=== PATIENT | female | born 1990 | race Caucasian/White ===

== ENCOUNTER 2024-03-26 16:44 | Observation (INO) ==
--- NOTE | 2024-03-26 17:29 | Emergency Department Note ---
Impression & Plan Acute UTI (urinary tract infection), Chest pain, Sepsis, Shortness of breath, Hypomagnesemia, Leukocytosis ED Provider Note HISTORY OF PRESENT ILLNESS: Patient is a 33-year-old female presenting with chest pain and shortness of breath. Patient reports that she has been having progressively worsening chest pressure and increasing shortness of breath over the last 4 days. She reports she has been tachycardic with a heart rate in the 130s to 140s for the last 3 days. She has been keeping an eye on this with her Apple Watch. She states that today she feels very lightheaded with her elevated heart rate. She denies any dysuria or hematuria. Denies any vaginal bleeding or discharge. She is 33 weeks . She states that she has been feeling movements. She reports that she spiked a fever today of 99-1 01. Denies any recent antipyretics prior to arrival. She has had a dry cough that has been productive of some blood-tinged sputum today. She has a history of hypertension. ROS: as above PHYSICAL EXAM: Constitutional: Patient appears in no acute distress. HENT: Head: Normocephalic and atraumatic. Eyes: EOMI, PERRL Mouth/Throat: Mucous membranes moist. Neck: Trachea midline. Neck supple. Cardiovascular: Tachycardic with regular rhythm. No murmurs, rubs or gallops. Intact distal pulses. Pulmonary/Chest: No respiratory distress. Breath sounds clear and equal bilaterally. No wheezes or rales. Abdominal: Abdomen soft, no tenderness, rebound or guarding. Gravid uterus. Musculoskeletal: No edema, tenderness or deformity noted. Skin: Warm and dry. No rash, erythema, pallor or cyanosis Psychiatric: Appropriate mood and affect for situation. Neurological: Alert and keenly responsive. CN II-XII grossly intact, moving all extremities equally and fully. MDM: - Vitals signs showed tachycardia - History obtained via patient. History as above. - Chronic conditions affecting care: HTN - Differential diagnoses include, but are not limited to: Congestive heart failure; acute coronary syndrome; COPD/asthma exacerbation; pulmonary edema; pulmonary embolism; pneumonia; pneumothorax; viral syndrome - Order placed for continuous cardiac monitoring. At this time, monitor showed rate of 121 bpm with normal sinus rhythm, per my interpretation. - External medical records reviewed. - EKG interpreted by myself showed normal sinus rhythm. Rate tachycardic at 128 bpm. QT 292. No acute ischemic changes. - Laboratory workup interpreted by myself showed leukocytosis (WBC 15.37); normal PT/INR; normal lactate; slight hyponatremia (Na 135); hypomagnesemia (Mg 1.5); normal lipase; normal troponin - CXR negative for pneumonia, per my interpretation - Viral respiratory panel negative - Per ACOG Guidelines: "Women in the second and third trimesters are candidates for low-dose CT if ultrasonography is not diagnostic. An [place] [employer] (ACOG) committee on obstetric practice endorses the utilization of low-dose CT when clinically indicated and notes that an exposure of less than 5 rads, a threshold well above the average for a low-dose CT, is not associated with the development of anomalies or loss." Flavio COE, Mary DE LEON, Joselito J et al: Low-dose computed tomography for the evaluation of flank pain in the population. Journal of Endourology/Endourological Society 2007; 21: 1255. [place] [employer]: [place] [employer]: guidelines for diagnostic imaging during . ACOG Committee Opinion No 299. Obstet Gynecol 2004; 104: 647 - Discussed the above risk for anomalies or loss with the patient before obtaining a CT scan. Discussed the risks of missing a diagnosis of pulmonary embolism, including heart failure and , with the patient. She consented to obtain a CT PE scan. - CT PE negative for PE. - Patient given 1.5L NS in ER with little improvement in her heart rate. Given 2g IV rocephin for UTI. - Given patient's leukocytosis, elevated RR, tachycardia and UTI, she meets sepsis criteria. She remains tachycardic in the ER with heart rate in the 110- 120 bpm range. - Patient given 1g IV magnesium for electrolyte replacement. - Discussion was had with case management specialist about patient's case and need for admission - Hospitalist, Dr. Hills, consulted for admission - Patient admitted to [facility] for further evaluation and management. ASSESSMENT AND PLAN: Diagnosis: acute UTI; sepsis; hypomagnesemia; chest pain; shortness of breath; leukocytosis Plan: admit Past Med/Surg History Problem List (Updated 03/26/24 @ 20:38 by Sophia Michael MD) Leukocytosis (Acute) Hypomagnesemia (Acute) Shortness of breath (Acute) Sepsis (Acute) Chest pain (Acute) Acute UTI (urinary tract infection) (Acute) Acute knee pain (Acute) Ankle sprain (Acute) Elbow injury (Acute) Fall (Acute) Cramping affecting , antepartum with 29 completed weeks gestation Medical History HTN (hypertension) with goal to be determined Endometriosis Fibroid Surgical History H/O laparoscopy x2 with LSO History of cholecystectomy History of section 2015 Social History Smoking Status: Never smoker Hx Alcohol Use: No Hx Substance Use: No Preferred Language: Marshallese Communication Ability: Effective Terminal Worker Required: No Beliefs That Will Affect Care: None marital status: Single Current Living Situation: Family and Significant Other Current Living Situation Comment: significant other and 2 children Feels Safe at Home: Yes Assistive Devices: None Allergies Allergies Allergy/AdvReac Type Severity Reaction Status Date / Time IV benadryl AdvReac Difficulty Uncoded 03/26/24 19:47 Breathing IV Zofran AdvReac Hives Uncoded 03/26/24 19:47 Home Meds Home Medications Medication Instructions Recorded Confirmed fluoxetine 10 mg capsule (Prozac) 10 mg PO DAILY 02/26/24 03/26/24 labetalol 100 mg tablet 100 mg PO BID 02/26/24 03/26/24 vits no.130-ferrous fum 1 tab PO BID 02/26/24 03/26/24 27 mg iron-folic acid 800 mcg tablet ( Vitamin) Results & Data (ED) Vital Signs Vital Signs - 24 hr 03/26/24 16:57 03/26/24 16:57 03/26/24 17:03 Temperature 37.3 C Temperature Source Oral Pulse Rate 128 H 129 H Pulse Rate from SpO2 Sensor 129 H Respiratory Rate 12 23 Blood Pressure 134/88 144/99 H Blood Pressure Mean 103 114 Pulse Oximetry 98 97 Oxygen Delivery Method Room Air Room Air Sepsis Recent Fever Within 48 Hours No Sepsis New/Unexplained Change in Mental Status No Sepsis Action Taken by Nursing No Action Required 03/26/24 17:07 03/26/24 17:12 03/26/24 17:48 Temperature Temperature Source Pulse Rate 129 H 121 H Pulse Rate from SpO2 Sensor 122 H Respiratory Rate 19 Blood Pressure Blood Pressure Mean Pulse Oximetry 94 96 Oxygen Delivery Method Room Air Sepsis Recent Fever Within 48 Hours Sepsis New/Unexplained Change in Mental Status Sepsis Action Taken by Nursing 03/26/24 18:09 03/26/24 19:03 03/26/24 19:33 Temperature Temperature Source Pulse Rate 118 H 111 H 107 H Pulse Rate from SpO2 Sensor 118 H 111 H 106 H Respiratory Rate 21 21 23 Blood Pressure 133/94 121/85 Blood Pressure Mean 107 97 Pulse Oximetry 97 97 97 Oxygen Delivery Method Sepsis Recent Fever Within 48 Hours Sepsis New/Unexplained Change in Mental Status Sepsis Action Taken by Nursing 03/26/24 19:43 03/26/24 20:00 Temperature 37.4 C Temperature Source Oral Pulse Rate 111 H Pulse Rate from SpO2 Sensor 112 H Respiratory Rate 19 Blood Pressure 126/81 Blood Pressure Mean 96 Pulse Oximetry 98 Oxygen Delivery Method Sepsis Recent Fever Within 48 Hours Sepsis New/Unexplained Change in Mental Status Sepsis Action Taken by Nursing Laboratory Data 03/26/24 17:40 03/26/24 17:40 Lab Results 03/26/24 03/26/24 Range/Units 17:40 19:36 WBC 15.37 H (4.8-10.8) K/ul RBC 3.52 L (4.20-5.40) M/uL Hgb 10.8 L (12.0-16.0) g/dl Hct 30.9 L (37.0-47.0) % MCV 87.8 (80.0-100.0) fL MCH 30.7 (25.0-34.0) pg MCHC 35.0 (32.0-36.0) g/dL RDW Std Deviation 41.1 (36.4-46.3) fL RDW Coeff of Balwinder 12.8 (11.5-14.5) % Plt Count 222 (130-400) K/uL MPV 9.2 L (9.4-12.4) fL Immature Gran % (Auto) 1.4 % Neut % (Auto) 79.4 % Lymph % (Auto) 9.0 % [place] % (Auto) 9.4 % Eos % (Auto) 0.5 % Baso % (Auto) 0.3 % Neut # (Auto) 12.23 H (1.40-6.50) K/uL Lymph # (Auto) 1.38 (1.20-3.40) K/uL [place] # (Auto) 1.44 H (0.11-0.59) K/uL Eos # (Auto) 0.07 (0.00-0.50) K/uL Baso # (Auto) 0.04 (0.00-0.20) K/uL Immature Gran # (Auto) 0.21 H (0.01-0.20) K/uL PT 10.6 (9.0-12.0) Seconds INR 1.0 (0.9-1.1) Sodium 135 L (136-145) mmol/L Potassium 3.6 (3.5-5.1) mmol/L Chloride 105 (98-107) mmol/L Carbon Dioxide 22 (21-32) mmol/L Anion Gap 8 (3-11) BUN 5 L (6-23) mg/dl Creatinine 0.67 (0.6-1.2) mg/dl Est Cr Clr Drug Dosing 117.3 ml/min eGFR 118.28 BUN/Creatinine Ratio 7.5 L (10-20) Glucose 118 H (70-99(Fasting)) mg/dl Lactate 0.8 (0.4-2.0) mmol/L Calcium 8.9 (8.6-10.3) mg/dl Magnesium 1.6 L (1.7-2.4) mg/dl Total Bilirubin 0.5 (0.2-1.0) mg/dl AST 20 (13-39) U/L ALT 13 (7-52) U/L Alkaline Phosphatase 121 H (34-104) U/L Troponin I High Sens 5.7 (0-14) pg/ml Total Protein 6.1 (6.0-8.3) gm/dl Albumin 3.2 L (3.4-5.0) gm/dl Globulin 2.9 (2.5-4.0) gm/dl Albumin/Globulin Ratio 1.1 (0.9-2) Lipase 11 (11-82) U/L Procalcitonin 0.11 (0-0.5) ng/ml Urine Color Yellow Urine Appearance Cloudy A (Clear) Urine pH 7.0 (4.5-7.5) Ur Specific [place] 1.009 (1.000-1.030) Urine Protein 1+ H (Negative) Urine Glucose (UA) Negative (Negative) Urine Ketones Trace H (Negative) Urine Blood Negative (Negative) Urine Nitrite Negative (Negative) Urine Bilirubin Negative (Negative) Urine Urobilinogen Negative (Negative) Ur Leukocyte Esterase 3+ H (Negative) Urine WBC (Auto) >50 H (0-5) /hpf Urine RBC (Auto) 0-2 (0-2) /hpf U Hyaline Cast (Auto) 0-2 (0-2) /lpf U Epithel Cells (Auto) 11-20 H (0-2) /hpf Urine Bacteria (Auto) 3+ H (None Seen) Adenovirus (PCR) Not Detected (NotDetected) B. pertussis DNA (PCR) Not Detected (NotDetected) B.parapertussis DNA PCR Not Detected (NotDetected) C. pneumoniae DNA (PCR) Not Detected (NotDetected) Coronavirus OC43 (PCR) Not Detected (NotDetected) Coronavirus HKU1 (PCR) Not Detected (NotDetected) Coronavirus 229E (PCR) Not Detected (NotDetected) SARS-CoV-2 (PCR) Not Detected (NotDetected) Coronavirus NL63 (PCR) Not Detected (NotDetected) Human Metapneumovir PCR Not Detected (NotDetected) Influenza Type A (PCR) Not Detected (NotDetected) Influenza Type B (PCR) Not Detected (NotDetected) M. pneumoniae (PCR) Not Detected (NotDetected) Parainfluenza 1 (PCR) Not Detected (NotDetected) Parainfluenza 2 (PCR) Not Detected (NotDetected) Parainfluenza 3 (PCR) Not Detected (NotDetected) Parainfluenza 4 (PCR) Not Detected (NotDetected) RSV (PCR) Not Detected (NotDetected) Entero/Rhino (PCR) Not Detected (NotDetected) Administered Medications Discontinued Medications Sodium Chloride (Nss) 500 mls @ 999 mls/hr IV .Q31M ONE Stop: 03/26/24 17:45 Last Infusion: 03/26/24 18:43 Dose: Infused Documented By: Admin: 03/26/24 17:56 Dose: 999 mls/hr Documented By: PANKAJ Ceftriaxone Sodium (Rocephin) 2,000 mg in 50 mls @ 100 mls/hr IV NOW STA Stop: 03/26/24 18:54 Last Infusion: 03/26/24 19:20 Dose: Infused Documented By: Admin: 03/26/24 18:47 Dose: 100 mls/hr Documented By: MOSES Sodium Chloride (Nss) 1,000 mls @ 999 mls/hr IV .Q1H1M ONE Stop: 03/26/24 20:09 Last Admin: 03/26/24 19:41 Dose: 999 mls/hr Documented By: MOSES Ioversol (Optiray 320 125ml) 92 ml IV ONCE ONE Stop: 03/26/24 18:35 Last Admin: 03/26/24 18:35 Dose: 92 ml Documented By: EDK Imaging Data Radiologist's Impression: Chest X-Ray 03/26/24 17:07 EXAM: Radiograph of the Chest 1 View INDICATION: Shortness of breath. . TECHNIQUE: Frontal view of the chest. The patient was shielded. COMPARISON: No relevant prior studies available. FINDINGS: Lungs and pleural spaces: No consolidation or pulmonary edema. No pleural effusion or pneumothorax. Heart: Shape and configuration within normal limits allowing for technique. Mediastinum: Normal contour. Bones/joints: No fracture, erosion or dislocation. Soft tissues: No abnormality noted. No radiopaque foreign body noted. Upper abdomen: No abnormality noted. IMPRESSION: No abnormality noted. ACT 112: Negative or not required by law. Electronically signed by Elmira Graham 03-26-2024 6:15 PM Chest CTA 03/26/24 17:26 EXAM: CT angio chest PE protocol CLINICAL HISTORY: TACHYCARDIA, SOB, COUGH CHEST PAIN 33 WEEKS ABDOMEN/PELVIS FULLY SHIELDED OPTIRAY 320 92ML EK INPATIENT TECHNIQUE: Contiguous 3.[address] angiographic images of the chest were acquired with the administration of intravenous contrast. Coronal and sagittal reconstructions were obtained. OPTIRAY 320 92ML was administered for post-contrast images. One of these 3D techniques was utilized: Maximum Intensity Pixel (MIP), 3D Reconstructed Images, Volume Rendered Images, Surface Shaded Rendering. One of the following dose reduction techniques were utilized for this exam: Automated exposure control, adjustment of the mA and/or kV according to patient size, and use of iterative reconstruction. CTDI: 20.3 mGy DLP: 283 mGy/Cm COMPARISON: None. FINDINGS: Aorta: The thoracic aorta is normal in caliber. No evidence of aneurysm, dissection, or significant atherosclerotic changes. Aortic arch and descending thoracic aorta are unremarkable. Pulmonary Arteries: Pulmonary arteries are normal in size and opacification. No evidence of pulmonary embolism. No stenosis or filling defects. Superior Vena Cava (SVC) and Inferior Vena Cava (IVC): Normal opacification and caliber. No evidence of thrombus or obstruction. Coronary Arteries: Coronary arteries are well-opacified. No significant stenosis or atherosclerotic changes. Mediastinum: No mediastinal mass or lymphadenopathy. Normal appearance of the thymus. Heart: Normal size and morphology of the heart. No pericardial effusion. Lungs: Lungs are clear with no evidence of consolidation, nodules, or masses. No pleural effusion or thickening. Bones: No fractures or lytic/sclerotic lesions of the visualized bony structures. Normal alignment and bone density. Soft Tissues: Normal appearance of the visualized soft tissues. No abnormal masses or fluid collections. significant hepatic aerobilia, for history, and further U/S correlation IMPRESSION: 1. No acute pulmonary embolism on current study. 2. Significant hepatic aerobilia, for history, and further U/S correlation. [facility]'s ER was called at at 6:15 PM STOCK PITCHER, 03/26/[address] Michael was informed about the presence of important medical findings. Electronically signed by Prakash Silver 03-26-2024 7:20 PM Discharge Plan Visit Data Chief Complaint: Cardiac Assessment Stated Complaint: CHEST PAIN ED Provider: Sophia Michael Discharge Problem: Acute UTI (urinary tract infection), Chest pain, Sepsis, Shortness of breath, Hypomagnesemia, Leukocytosis Forms Stand Alone Forms: My [facility] Prescriptions Prescriptions: No Action fluoxetine [Prozac] 10 mg Capsule 10 mg PO DAILY labetalol 100 mg Tablet 100 mg PO BID Vitamin 27 mg iron- 800 mcg Tablet 1 tab PO BID Referrals Referrals: PCP,NO [Primary Care Provider] -
[2024-03-26] MEDS: SODIUM CHLORIDE 0.9% 500 ML IV ONE (17:56)
[2024-03-26 18:04] LABS: Basophils # (auto) 0.04 K/uL (0.00-0.20); Basophils % (auto) 0.3 %; Eosinophils # (auto) 0.07 K/uL (0.00-0.50); Eosinophils % (auto) 0.5 %; Hematocrit (blood only) 30.9 % (37.0-47.0); Hemoglobin 10.8 g/dl (12.0-16.0); Immature Granulocytes # (auto) 0.21 K/uL (0.01-0.20); Immature Granulocytes % (auto) 1.4 %; Lymphocytes # (auto) 1.38 K/uL (1.20-3.40); Mean Corpuscular Hemoglobin 30.7 pg (25.0-34.0); Mean Corpuscular Volume 87.8 fL (80.0-100.0); Mean Platelet Volume 9.2 fL (9.4-12.4); Monocytes # (auto) 1.44 K/uL (0.11-0.59); Monocytes % (auto) 9.4 %; Neutrophils # (auto) 12.23 K/uL (1.40-6.50); Neutrophils % (auto) 79.4 %; Platelet Count 222 K/uL (130-400); RDW Coefficient of Variation 12.8 % (11.5-14.5); RDW Standard Deviation 41.1 fL (36.4-46.3); Red Blood Count 3.52 M/uL (4.20-5.40); White Blood Count 15.37 K/ul (4.8-10.8)
[2024-03-26 18:08] LABS: Appearance Urine Cloudy (Clear); Bacteria Urine Automated 3+ (None Seen); Bilirubin Urine Negative (Negative); Blood Urine Negative (Negative); Cast Urine Automated 0-2 /lpf (0-2); Color Urine Yellow; Glucose Urine UA Negative (Negative); Ketones Urine Trace (Negative); Leukocyte Esterase Urine 3+ (Negative); Nitrite Urine Negative (Negative); Protein Urine 1+ (Negative); RBC Urine Automated 0-2 /hpf (0-2); Specific Gravity Urine 1.009 (1.000-1.030); Urobilinogen Urine Negative (Negative); WBC Urine Automated >50 /hpf (0-5)
[2024-03-26 18:15] LABS: Albumin Globulin Ratio 1.1 (0.9-2); Albumin Level 3.2 gm/dl (3.4-5.0); BUN Creatinine Ratio 7.5 (10-20); Bilirubin,Total 0.5 mg/dl (0.2-1.0); Calcium 8.9 mg/dl (8.6-10.3); Creatinine Clr Calc Pharmacy 117.3 ml/min; Globulin 2.9 gm/dl (2.5-4.0); Magnesium 1.6 mg/dl (1.7-2.4); Potassium 3.6 mmol/L (3.5-5.1); Total Protein 6.1 gm/dl (6.0-8.3)
--- NOTE | 2024-03-26 18:15 | XRay Report ---
EXAM: Radiograph of the Chest 1 View INDICATION: Shortness of breath. . TECHNIQUE: Frontal view of the chest. The patient was shielded. COMPARISON: No relevant prior studies available. FINDINGS: Lungs and pleural spaces: No consolidation or pulmonary edema. No pleural effusion or pneumothorax. Heart: Shape and configuration within normal limits allowing for technique. Mediastinum: Normal contour. Bones/joints: No fracture, erosion or dislocation. Soft tissues: No abnormality noted. No radiopaque foreign body noted. Upper abdomen: No abnormality noted. IMPRESSION: No abnormality noted. ACT 112: Negative or not required by law. Electronically signed by Elmira Graham 03-26-2024 6:15 PM
[2024-03-26 18:21] LABS: Troponin I High Sensitivity 5.7 pg/ml (0-14)
[2024-03-26 18:24] LABS: Prothrombin Time 10.6 Seconds (9.0-12.0)
[2024-03-26] MEDS: OPTIRAY 320 125ml IV ONE (18:35)
[2024-03-26] MEDS: cefTRIAXone SODIUM 2,000 MG/50 ML BAG IV STA (18:47)
[2024-03-26 18:58] LABS: Adenovirus PCR Not Detected (NotDetected); Bordetella parapertussis PCR Not Detected (NotDetected); Bordetella pertussis PCR Not Detected (NotDetected); Chlamydia pneumoniae PCR Not Detected (NotDetected); Coronavirus 229E PCR Not Detected (NotDetected); Coronavirus CoV-2 (COVID19)PCR Not Detected (NotDetected); Coronavirus HKU1 PCR Not Detected (NotDetected); Coronavirus NL63 PCR Not Detected (NotDetected); Coronavirus OC43PCR Not Detected (NotDetected); Human Metapneumovirus PCR Not Detected (NotDetected); Influenza A PCR Not Detected (NotDetected); Influenza B PCR Not Detected (NotDetected); Mycoplasma pneumoniae PCR Not Detected (NotDetected); Parainfluenza Virus 1 PCR Not Detected (NotDetected); Parainfluenza Virus 2 PCR Not Detected (NotDetected); Parainfluenza Virus 3 PCR Not Detected (NotDetected); Parainfluenza Virus 4 PCR Not Detected (NotDetected); Respiratory Syncytial VirusPCR Not Detected (NotDetected); Rhinovirus/Enterovirus PCR Not Detected (NotDetected)
--- NOTE | 2024-03-26 19:22 | CT Scan Report ---
EXAM: CT angio chest PE protocol CLINICAL HISTORY: TACHYCARDIA, SOB, COUGH CHEST PAIN 33 WEEKS ABDOMEN/PELVIS FULLY SHIELDED OPTIRAY 320 92ML EK INPATIENT TECHNIQUE: Contiguous 3.[address] angiographic images of the chest were acquired with the administration of intravenous contrast. Coronal and sagittal reconstructions were obtained. OPTIRAY 320 92ML was administered for post-contrast images. One of these 3D techniques was utilized: Maximum Intensity Pixel (MIP), 3D Reconstructed Images, Volume Rendered Images, Surface Shaded Rendering. One of the following dose reduction techniques were utilized for this exam: Automated exposure control, adjustment of the mA and/or kV according to patient size, and use of iterative reconstruction. CTDI: 20.3 mGy DLP: 283 mGy/Cm COMPARISON: None. FINDINGS: Aorta: The thoracic aorta is normal in caliber. No evidence of aneurysm, dissection, or significant atherosclerotic changes. Aortic arch and descending thoracic aorta are unremarkable. Pulmonary Arteries: Pulmonary arteries are normal in size and opacification. No evidence of pulmonary embolism. No stenosis or filling defects. Superior Vena Cava (SVC) and Inferior Vena Cava (IVC): Normal opacification and caliber. No evidence of thrombus or obstruction. Coronary Arteries: Coronary arteries are well-opacified. No significant stenosis or atherosclerotic changes. Mediastinum: No mediastinal mass or lymphadenopathy. Normal appearance of the thymus. Heart: Normal size and morphology of the heart. No pericardial effusion. Lungs: Lungs are clear with no evidence of consolidation, nodules, or masses. No pleural effusion or thickening. Bones: No fractures or lytic/sclerotic lesions of the visualized bony structures. Normal alignment and bone density. Soft Tissues: Normal appearance of the visualized soft tissues. No abnormal masses or fluid collections. significant hepatic aerobilia, for history, and further U/S correlation IMPRESSION: 1. No acute pulmonary embolism on current study. 2. Significant hepatic aerobilia, for history, and further U/S correlation. [facility]'s ER was called at at 6:15 PM TAN ROOM SUPERVISOR, 03/26/[address] Michael was informed about the presence of important medical findings. Electronically signed by Prakash Silver 03-26-2024 7:20 PM
[2024-03-26] MEDS: SODIUM CHLORIDE 0.9% 1,000 ML IV ONE (19:41)
--- NOTE | 2024-03-26 21:01 | History & Physical Report ---
Date of Service March 26, 2024 Assessment & Plan (1) Sepsis: (2) Shortness of breath: (3) Acute UTI (urinary tract infection): (4) Third trimester : Plan Nina is a 33F EDC of 05/12/24 for EGA of 33 2/7 weeks who presented to the hospital for increasing heart rate and dyspnea and is being admitted for UTI w/ sepsis. (1) Sepsis: - Patient SIRS + w/ presumed urinary source Leukocytosis w/ left shift, Lactate wnl, Procal wnl - S/p 1.5 L NSS in ED, Magnesium repleted - Additional 1L IVF ordered on admission - Continue Ceftriaxone 2g IV Q24h (2) Shortness of breath: - CXR and CTA negative - Biofire negative - Hemodynamically table on room air - Likely a/w sepsis/UTI in setting of third trimester (3) Acute UTI (urinary tract infection): - Asymptomatic bacteriuria in - Now w/ leukocytosis and tachycardia - Abnormal urinalysis on admission, cultures pending - Continue Ceftriaxone IV (4) Third trimester : - Patient following with Codi Almeida, complicated OB PMH - Baby remains active, no vaginal bleeding/discharge/fluid loss; increased contractions - [facility] Consulted Cervix noted to be closed on exam NST on admission wnl - NST ongoing, ordered qshift - Continue vitamin Continue home medications: Labetalol 100 mg PO BID and Prozac Code: Full IVF: Ongoing Diet: NPO Dispo: PCU/tele History of Present Illness Chief Complaint: Elevated HR Primary Care Provider: NO PCP Nina is a 33F EDC of 05/12/24 for EGA of 33 2/7 weeks who presented to the hospital for increasing heart rate and dyspnea. ED: 1.5L NSS, Ceftriaxone Nina presented to the ER due to having an increasing heart rate over the last 4 days. She noted that tonight she became extremely short of breath w/ pain on inspiration so she called EMS. Over the last few days, she has experienced low grade temperature elevations to 99 degrees, but tonight her temperature keke to 100.9 (documented in ambulance as well). Patient notes that she received Aspirin en route w/ EMS. She states that she has been experiencing a mild non-productive cough w/ nasal congestion over the last 3-4 days. No known sick contacts, but does have two children at home who are in school. She notes intermittent nausea associated w/ this for which she takes PO Zofran. She denies any dysuria, frequency, or urgency (but states that baby has been sitting on her bladder for weeks). She denies diarrhea, and notes constipation with this . Patient denies any abdominal pain or vaginal bleeding, spotting, or discharge. Patient notes that baby has been active as usual. Patient notes that she has had a significant amount of [place] singh contractions during this , which is different from her previous. She notes that she continues to have contractions tonight, that are more painful than baseline. Patient follows / [facility] for OB care. Patient has had two prior c/sections. First for cardiac arrest during delivery (per patient) and second for severe pre-eclampsia. Patient has a history of post- hemorrhage (per patient). Patient is known to have chronic hypertension of Labetalol 100 mg BID. She also takes Prozac. Allergies Allergy/AdvReac Type Severity Reaction Status Date / Time diphenhydramine AdvReac Difficulty Verified 03/27/24 00:46 [From Benadryl] Breathing ondansetron [From Zofran] AdvReac Hives Verified 03/27/24 00:47 Home Medications Medication Instructions Recorded Confirmed Type fluoxetine 10 mg capsule (Prozac) 10 mg PO DAILY 02/26/24 03/26/24 History labetalol 100 mg tablet 100 mg PO BID 02/26/24 03/26/24 History vits no.130-ferrous fum 1 tab PO BID 02/26/24 03/26/24 History 27 mg iron-folic acid 800 mcg tablet ( Vitamin) cefdinir 300 mg capsule 300 mg PO BID 8 days #16 caps 03/27/24 Rx Past Med/Surg History Problem List (Updated 03/27/24 @ 12:02 by Celio Pastrana DO) Abnormal contrast radiography of biliary tree Third trimester Leukocytosis (Acute) Hypomagnesemia (Acute) Shortness of breath (Acute) Sepsis (Acute) Chest pain (Acute) Acute UTI (urinary tract infection) (Acute) Acute knee pain (Acute) Ankle sprain (Acute) Elbow injury (Acute) Fall (Acute) Cramping affecting , antepartum with 29 completed weeks gestation Medical History HTN (hypertension) with goal to be determined Endometriosis Fibroid Surgical History H/O laparoscopy x2 with LSO History of cholecystectomy History of section 2008, 2015 Social History Smoking Status: Never smoker Hx Alcohol Use: No Hx Substance Use: No Preferred Language: Korean Communication Ability: Effective 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 Beliefs That Will Affect Care: None marital status: Single Current Living Situation: Spouse and Family Current Living Situation Comment: significant other and 2 children Feels Safe at Home: Yes Assistive Devices: None Physical Exam Physical Exam: Gen: NAD, alert, tearful, anxious HEENT: Supple, no LAD, no thyromegaly, no JVD Resp:Non-labored, no wheezing/rhonchi/rales, CTAB CV:tachycardic, regular rhythm, normal S1/S2, no M/R/G Abd: Gravid, no TTP, normoactive bowels, no masses - Gravid uterus, active fetus, FHT in 15 0s Extr: 2+ dp bilaterally, no edema Skin: No rashes lesions or erythema Results & Data Results & Data Vital Signs (Past 12 Hours) Vital Signs Temp Pulse Resp BP Pulse Ox O2 Del Method 03/26/24 20:00 111 H 19 126/81 98 03/26/24 19:43 37.4 C 03/26/24 19:33 107 H 23 97 03/26/24 19:03 111 H 21 121/85 97 03/26/24 18:09 118 H 21 133/94 97 03/26/24 17:48 121 H 19 96 03/26/24 17:12 129 H 03/26/24 17:07 94 Room Air 03/26/24 17:03 129 H 23 144/99 H 97 03/26/24 16:57 Room Air 03/26/24 16:57 37.3 C 128 H 12 134/88 98 Room Air Supervising Physician Co-Signing Physician Notes Attending addendum: I have physically seen this patient, have supervised the medical residents activities, and agree with the H&P unless as otherwise noted. Assessment and Plan: Sepsis due to UTI- Admit to monitored bed Follow urine culture and sensitivity Empiric ceftriaxone 2 g IV every 24 hours Status post 1.5 L normal saline in the ED Continue additional 1 L normal saline resuscitation as noted Hypertension- Continue labetalol with hold parameters Third trimester - Follows with evidence 2 boys Consult [facility] while admitted to [facility] Continue Prozac Resident Activity Tracking Resident Involvement: Resident Care Provided Care Provided: Adult Hospital Medicine
[2024-03-26] MEDS: MAGNESIUM SULFATE / D5W 1 GM/100 ML BAG IV STA (21:17)
--- NOTE | 2024-03-27 00:04 | OB/GYN Consultation ---
Date of Consultation March 26, 2024 Assessment & Plan (1) Third trimester : (2) Acute UTI (urinary tract infection): (3) Sepsis: Plan 33 yo at 33wks gestation admitted to medicine service for UTI w/ sepsis BP mild range, appropriate given cHTN. Would continue home labetalol s/p rocephin by primary team, agree with antibx use - pt notes good fm, has had ongoing BH singh, SVE was closed so no evidence of active labor currently. Will obtain NST now, if reactive, continue qshift. 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 Berry History of Present Illness 33 yo at 33 1/7 wga w/ EMIL 05/13/24 presented to ED for evaluation due to worsening CP and SOB. Over last 4 days, has had increasing tachycardia, thought it was due to dehydration initially. Over last day, began having associated CP, SOB and low grade fever. ER w/u noted neg CXR and CTA was neg for PE. UA c/w UTI, however given tachycardia and leukocytosis is being admitted to medicine service for UTI w/ sepsis. +FM; denies LOF, VB. has been dealing with neha singh contractions throughout this , moreso than either of her others. Worse today in severity but about the same frequency as it has been the last day. She sees [facility] OB for routine care, reports last seeing them on PNI: cHTN on labetalol 100mg po bid CSx2 Depr/anx on meds Allergies Allergy/AdvReac Type Severity Reaction Status Date / Time IV benadryl AdvReac Difficulty Uncoded 03/26/24 19:47 Breathing IV Zofran AdvReac Hives Uncoded 03/26/24 19:47 Home Medications Medication Instructions Recorded Confirmed Type fluoxetine 10 mg capsule (Prozac) 10 mg PO DAILY 02/26/24 03/26/24 History labetalol 100 mg tablet 100 mg PO BID 02/26/24 03/26/24 History vits no.130-ferrous fum 1 tab PO BID 02/26/24 03/26/24 History 27 mg iron-folic acid 800 mcg tablet ( Vitamin) Patient History Medical History HTN (hypertension) with goal to be determined Endometriosis Fibroid Surgical History H/O laparoscopy x2 with LSO History of cholecystectomy History of section 2008, 2015 Social History Smoking Status: Never smoker Hx Alcohol Use: No Hx Substance Use: No Preferred Language: Macanese Communication Ability: Effective Copy Writer Required: No Beliefs That Will Affect Care: None marital status: Single Current Living Situation: Family and Significant Other Current Living Situation Comment: significant other and 2 children Feels Safe at Home: Yes Assistive Devices: None Physical Exam Genitourinary: SVE c/l/h NST started, normal baseline noted Results & Data Vital Signs (Past 12 Hours) Vital Signs Temp Pulse Pulse Resp BP BP Pulse Ox 03/26/24 23:39 126 H 20 145/92 H 99 03/26/24 23:00 121 H 20 140/89 97 03/26/24 22:30 110 H 16 128/83 97 03/26/24 22:06 111 H 22 98 03/26/24 21:37 112 H 03/26/24 21:30 119 H 22 100 03/26/24 21:06 112 H 21 129/87 99 03/26/24 20:45 110 H 16 100 03/26/24 20:00 111 H 19 126/81 98 03/26/24 19:43 99.3 F 03/26/24 19:33 107 H 23 97 03/26/24 19:03 111 H 21 121/85 97 03/26/24 18:09 118 H 21 133/94 97 03/26/24 17:48 121 H 19 96 03/26/24 17:12 129 H 03/26/24 17:07 94 03/26/24 17:03 129 H 23 144/99 H 97 03/26/24 16:57 03/26/24 16:57 99.1 F 128 H 12 134/88 98 O2 Del Method 03/26/24 23:39 Room Air 03/26/24 23:00 Room Air 03/26/24 22:30 03/26/24 22:06 03/26/24 21:37 03/26/24 21:30 03/26/24 21:06 03/26/24 20:45 03/26/24 20:00 03/26/24 19:43 03/26/24 19:33 03/26/24 19:03 03/26/24 18:09 03/26/24 17:48 03/26/24 17:12 03/26/24 17:07 Room Air 03/26/24 17:03 03/26/24 16:57 Room Air 03/26/24 16:57 Room Air PG Care Time/CCT Total # of Minutes Spent Total Time Spent with Patient: Total time spent is greater than 50% in coordination of care (as documented) at patient's floor/unit and/or counseling patient: Coding Level of Care Code 05667 IN/OBS CONSULT LVL 3,45M Diagnoses Third trimester Z34.93 Acute UTI (urinary tract infection) N39.0 Sepsis A41.9 CPT Codes Misx Procedure Codes - 83737 NST: 22701 NST ([id number]) 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
[2024-03-27] MEDS ORDERED: POLYETHYLENE (MIRALAX) 17 GM PACK PO PRN (00:39)
[2024-03-27] MEDS ORDERED: ONDANSETRON 4 MG OD TAB PO PRN (00:49)
[2024-03-27] MEDS: LABETALOL HCL 100 MG TAB PO SCH (01:40)
[2024-03-27] MEDS: LACTATED RINGER'S 1,000 ML IV SCH (01:40)
--- OUTSIDE RECORDS SUMMARY | 2024-03-27 03:47 | External Medical Summary | Continuity of Care Document ---
Author Name Unknown Organization [facility] [address] [facility] [address] Address [address] [place], [place] [id number] Encounter [facility] FINNBR [id number] Date(s): 03/15/24 - 03/15/24 [facility] [address] [facility] [address] [facility] [address] [place] [id number] Encounter Diagnosis Injury of left elbow(Discharge Diagnosis) - 03/15/24 Left ankle sprain(Discharge Diagnosis) - 03/15/24 Contusion of knee, right(Discharge Diagnosis) - 03/15/24 Discharge Disposition: Home or Self Care Attending Physician: MD Hallie, Doni Tuttle Allergies, Adverse Reactions, Alerts No Known Allergies Medications ferrous sulfate 325 mg (65 mg elemental iron) oral tablet Start: 03/15/24 2:41:00 PM EDT, 1 tab, PO, Daily Start Date: 03/15/24 Status: Ordered labetalol 200 mg oral tablet Start: 03/15/24 2:40:00 PM EDT, 1 tab, PO, bid Start Date: 03/15/24 Status: Ordered Chuyita 29 Start: 03/15/24 2:44:00 PM EDT Start Date: 03/15/24 Status: Ordered Mental Status 03/15/24 Barriers to Learning one year None evide nt Mandatory Health Literacy Documentation Yes Health Literacy Communication Barriers N ever Primary Language Iraqi Problem List Condition Confirmation Course Effective Dates Status Health St [facility] Informant Contusion of knee, right Confirmed Active Injury of left elbow Confirmed Active Left ankle sprain Confirmed Active Diagnosis Diagnosis Type Effective Dates Health Status Cl inical Service Informant Injury of left elbow Discharge Diagnosis 03/15/24 Non-Specified Left ankle sprain Discharge Diagnosis 03/15/24 Non-Specified Contusion of knee, right Discharge Diagnosis 03/15/24 Non-Specified Social History Social History Type Response Smoking Status Never smoked cigaret gina Sex Sex Representation Female (finding)
[2024-03-27 07:36] LABS: Hematocrit (blood only) 28.9 % (37.0-47.0); Hemoglobin 9.9 g/dl (12.0-16.0); Mean Corpuscular Hemoglobin 30.4 pg (25.0-34.0); Mean Corpuscular Hgb Conc 34.3 g/dL (32.0-36.0); Mean Corpuscular Volume 88.7 fL (80.0-100.0); Mean Platelet Volume 9.2 fL (9.4-12.4); Platelet Count 202 K/uL (130-400); RDW Coefficient of Variation 12.9 % (11.5-14.5); RDW Standard Deviation 41.9 fL (36.4-46.3); Red Blood Count 3.26 M/uL (4.20-5.40); White Blood Count 15.62 K/ul (4.8-10.8)
--- NOTE | 2024-03-27 07:50 | Hospitalist Progress Note ---
Date of Service March 27, 2024 Assessment & Plan (1) Sepsis: Plan: suspected sepsis based on SIRS criteria +tachycardia and white count w/ left shift, presumed urinary source - UA showing 3+ bacteria, 3+ leuks - continue ceftriaxone 2g IV daily for now - watch for urine culture results, narrow abx upon result - consider d/c tomorrow if continues to clinically improve (2) Shortness of breath: Plan: resolving CTA negative for PE or infiltrate; cxr negative EKG positive for sinus tachycardia, heart rate resolved - change from telemetry to medical (3) Acute UTI (urinary tract infection): Plan: UA showing 3+ bacteria, 3+ leuks - was asymptomatic aside from urinary frequency and urgency, both of which have been improving - continue on ceftriaxone, change upon urine culture result (4) Third trimester : Plan: , currently 33 x/7 weeks HTN well-controlled with Labetalol Receiving mag for headaches Otherwise uncomplicated , OB following Good movement, no vaginal bleeding, cervix closed on exam by OB NST qshift continue vitamin (5) Abnormal contrast radiography of biliary tree: Plan: CTA chest: significant hepatic aerobilia seen, likely a chronic finding - hx cholecystectomy 15 years ago, denies any complications - other abdominal surgical history includes 2 c-sections and a D&C Plan Continue home medications: Labetalol 100 mg PO BID and Prozac Code: Full IVF: Ongoing Diet: change to OB regular Dispo: change to med/surg Admission and Anticipated Discharge Date Admission Date: March 26, 2024 Supervising Physician Co-Signing Physician Notes I personally examined the patient and verified all carter points of history and exam, discussed case, and agree with decision making with Dr Pastrana otherwise as per above and dc summary done by myself Subjective Patient seen at bedside this morning, VSS. Overnight, states she couldn't sleep very well due to headache, otherwise no complaints. Today, endorses feeling overall better but still having some headache, receiving mag. Also endorses mild lightheadedness and believes it's due to her not eating since yesterday at lunch. Endorses ambulation and using bathroom without issue. Endorses good movement. Denies any painful contractions, denies any vaginal bleeding. Continues to deny dysuria, decreasing urinary frequency and urgency, denies hematuria. Denies any fever, body aches, chills, SOB, dizziness, n/v/d, chest pain, abdominal pain, pain or swelling in lower extremities, numbness/tingling of l ower extremities. Review of Systems Review of Systems: as HPI Physical Exam Physical Exam: Constitutional: A&Ox4, appears stated age, not appearing in acute distress HEENT: NC/AT, EOM intact, anicteric sclerae, Cardiovascular: RRR, +s1/s2, no murmurs/rubs/gallops Respiratory: b/l clear to auscultation, good and equal air entry b/l, no wheezes/rales/rhonchi GI/abd: gravid uterus, +BS, nontender to palpation, movement palpated MSK: 5/5 strength in all extremities LE: no erythema/swelling/pain in b/l LE Neuro: no facial droop, no speech or hearing deficits; moves all extremities spontaneously Results & Data Results & Data Vital Signs (Past 12 Hours) Vital Signs Temp Pulse Pulse Resp BP BP Pulse Ox 03/27/24 07:39 36.4 C L 104 H 17 125/74 97 03/27/24 01:04 37.5 C 125 H 18 145/84 H 93 03/27/24 00:44 127 H 03/26/24 23:39 126 H 20 145/92 H 99 03/26/24 23:00 121 H 20 140/89 97 03/26/24 22:30 110 H 16 128/83 97 03/26/24 22:06 111 H 22 98 03/26/24 21:37 112 H 03/26/24 21:30 119 H 22 100 03/26/24 21:06 112 H 21 129/87 99 03/26/24 20:45 110 H 16 100 03/26/24 20:00 111 H 19 126/81 98 O2 Del Method 03/27/24 07:39 Room Air 03/27/24 01:04 Room Air 03/27/24 00:44 03/26/24 23:39 Room Air 03/26/24 23:00 Room Air 03/26/24 22:30 03/26/24 22:06 03/26/24 21:37 03/26/24 21:30 03/26/24 21:06 03/26/24 20:45 03/26/24 20:00 Laboratory Results Abnormal lab results 03/26/24 03/27/24 Range/Units 17:40 07:16 WBC 15.37 H 15.62 H (4.8-10.8) K/ul RBC 3.52 L 3.26 L (4.20-5.40) M/uL Hgb 10.8 L 9.9 L (12.0-16.0) g/dl Hct 30.9 L 28.9 L (37.0-47.0) % MPV 9.2 L 9.2 L (9.4-12.4) fL Neut # (Auto) 12.23 H (1.40-6.50) K/uL Emmet # (Auto) 1.44 H (0.11-0.59) K/uL Immature Gran # (Auto) 0.21 H (0.01-0.20) K/uL Sodium 135 L (136-145) mmol/L BUN 5 L (6-23) mg/dl BUN/Creatinine Ratio 7.5 L (10-20) Glucose 118 H (70-99(Fasting)) mg/dl Magnesium 1.6 L (1.7-2.4) mg/dl Alkaline Phosphatase 121 H (34-104) U/L Albumin 3.2 L (3.4-5.0) gm/dl Urine Appearance Cloudy A (Clear) Urine Protein 1+ H (Negative) Urine Ketones Trace H (Negative) Ur Leukocyte Esterase 3+ H (Negative) Urine WBC (Auto) >50 H (0-5) /hpf U Epithel Cells (Auto) 11-20 H (0-2) /hpf Urine Bacteria (Auto) 3+ H (None Seen) Resident Activity Tracking Resident Involvement: Resident Care Provided Care Provided: Adult [facility] Medicine (1) Sepsis Sepsis acute organ dysfunction status: without acute organ dysfunction Sepsis type: sepsis due to unspecified organism Qualified Code(s): A41.9 - Sepsis, unspecified organism
[2024-03-27 07:57] LABS: Albumin Globulin Ratio 1.1 (0.9-2); BUN Creatinine Ratio 7.9 (10-20); Bilirubin,Total 0.5 mg/dl (0.2-1.0); Calcium 8.5 mg/dl (8.6-10.3); Creatinine Clr Calc Pharmacy 124.2 ml/min; Globulin 2.8 gm/dl (2.5-4.0); Magnesium 1.7 mg/dl (1.7-2.4); Potassium 3.8 mmol/L (3.5-5.1); Total Protein 5.8 gm/dl (6.0-8.3)
--- NOTE | 2024-03-27 08:51 | Obstetrical Progress Note ---
Date of Service March 27, 2024 Assessment & Plan (1) Third trimester : (2) Acute UTI (urinary tract infection): Plan Pt feels much better and vss appear improved, care per primary team No ob complaints, will get NST this AM Admission and Anticipated Discharge Date Admission Date: March 26, 2024 Subjective FLORIAN. Feeling much better, not much SOB/coughing. +FM; BH improved, denies LOF or VB Physical Exam Gastrointestinal (Abdomen): abd soft, gravid, NT Results & Data Vital Signs (Past 12 Hours) Vital Signs Temp Pulse Pulse Resp BP BP Pulse Ox 03/27/24 07:39 97.5 F L 104 H 17 125/74 97 03/27/24 01:04 99.5 F 125 H 18 145/84 H 93 03/27/24 00:44 127 H 03/26/24 23:39 126 H 20 145/92 H 99 03/26/24 23:00 121 H 20 140/89 97 03/26/24 22:30 110 H 16 128/83 97 03/26/24 22:06 111 H 22 98 03/26/24 21:37 112 H 03/26/24 21:30 119 H 22 100 03/26/24 21:06 112 H 21 129/87 99 O2 Del Method 03/27/24 07:39 Room Air 03/27/24 01:04 Room Air 03/27/24 00:44 03/26/24 23:39 Room Air 03/26/24 23:00 Room Air 03/26/24 22:30 03/26/24 22:06 03/26/24 21:37 03/26/24 21:30 03/26/24 21:06 PG Care Time/CCT Total # of Minutes Spent Total Time Spent with Patient: Total time spent is greater than 50% in coordination of care (as documented) at patient's floor/unit and/or counseling patient: Coding Level of Care Code 68314 SUB INP/OBS CARE 06/12MIN Diagnoses Third trimester Z34.93 Acute UTI (urinary tract infection) N39.0
[2024-03-27] MEDS: PRENATAL VITAMIN 1 TAB PO SCH (10:00)
[2024-03-27] MEDS: FLUoxetine HCL 10 MG CAP PO SCH (10:00)
[2024-03-27 11:42] VITALS: PULSE 88; O2SAT 98
[2024-03-27] MEDS: ACETAMINOPHEN 325 MG TAB PO PRN (12:55)
[2024-03-27 15:38] VITALS: BP 132/83; RESP 20; TEMP 98.2
--- NOTE | 2024-03-27 16:36 | Billing Data ---
Date of Service March 27, 2024 Coding Level of Care Code 28030 IN/OBS DISCH 30 MIN/LESS
--- NOTE | 2024-03-27 16:36 | Discharge Summary ---
Discharge Summary Date of Service March 27, 2024 Principal Dx & Hospital Course #1 = Principal Diagnosis (1) Sepsis: presented septic - source not entirely clear but most c/w UTI as cause ---admitted on ceftriaxone, vitals stabilized, WBC stable at 15 (not worsening not improving); most importantly patient felt dramatically better and noted resolution in urinary sx (with hindsight she realized she had far more frequency and urgency than she was paying attention to -- only really noticing when they resolved) ---discussed ongoing expectant and inpatient management but pt noted that she has numerous responsibilities she needs to attend to - after a careful discussion of risks/benefits agreed to give ceftriaxone today and home on 10 days total 3rd gen cephalosporin (8 more days with cefdinir - crosschecked as safe in ) - discussed f/u sandra for any worsening and establish w PCP (sounds like she had seen [facility] last week for an urgent care visit due to ankle/arm pain after a fall - should be easy to f/u/ there as PCP as well sin ce she's been seen - ideally to be seen later this week) -WBC stable at 15 - would like to see this come down but (a) as noted above pt had numerous responsibilities and prefers to go home given that she's clinically better and (b) might be persistent 15 WBC related to . --->f/u as outpt, repeat CBC in a week pneumobilia did not appear to have true clinical significance - no GI sx, only LFT up was alk phos likely explained by placental alk phos. safe/stable for home Notes For Next Care Provider Medication Changes From Visit cefdinir 300mg bid (to round out 10 days total of 3rd gen cephalosporin coverage) Admission HPI Per Admitting Provider Nina is a 33F EDC of 05/12/24 for EGA of 33 2/7 weeks who presented to the hospital for increasing heart rate and dyspnea. ED: 1.5L NSS, Ceftriaxone Nina presented to the ER due to having an increasing heart rate over the last 4 days. She noted that tonight she became extremely short of breath w/ pain on inspiration so she called EMS. Over the last few days, she has experienced low grade temperature elevations to 99 degrees, but tonight her temperature keke to 100.9 (documented in ambulance as well). Patient notes that she received Aspirin en route w/ EMS. She states that she has been experiencing a mild non-productive cough w/ nasal congestion over the last 3-4 days. No known sick contacts, but does have two children at home who are in school. She notes intermittent nausea associated w/ this for which she takes PO Zofran. She denies any dysuria, frequency, or urgency (but states that baby has been sitting on her bladder for weeks). She denies diarrhea, and notes constipation with this . Patient denies any abdominal pain or vaginal bleeding, spotting, or discharge. Patient notes that baby has been active as usual. Patient notes that she has had a significant amount of [place] singh contractions during this , which is different from her previous. She notes that she continues to have contractions tonight, that are more painful than baseline. Patient follows w/ [facility] for OB care. Patient has had two prior c/sections. First for cardiac arrest during delivery (per patient) and second for severe pre-eclampsia. Patient has a history of post- hemorrhage (per patient). Patient is known to have chronic hypertension of Labetalol 100 mg BID. She also takes Prozac. Updated Medication List Medication Instructions Recorded Confirmed Type fluoxetine 10 mg capsule (Prozac) 10 mg PO DAILY 02/26/24 03/26/24 History labetalol 100 mg tablet 100 mg PO BID 02/26/24 03/26/24 History vits no.130-ferrous fum 1 tab PO BID 02/26/24 03/26/24 History 27 mg iron-folic acid 800 mcg tablet ( Vitamin) Hospital Stay Data Consultations 03/26/24 20:04 ED Decision to Admit Stat 03/26/24 23:50 Consult Obstetrics Routine Diagnostic Imagining Performed 03/26/24 17:26 CT for pulmonary embolism PE [CT angio chest PE protocol] Stat Pending Results Patient Have Any Pending Studies at Discharge: No Discharge Instructions Given to Patient (Per Discharging Provider) You were evaluated and treated for suspected sepsis in the setting of a urinary tract infection (UTI) Total Time Total Time Spent Total Time Spent (In Minutes): <30
--- NOTE | 2024-03-27 16:37 | Billing Data ---
Date of Service March 27, 2024 Coding Level of Care Code 71214 IN/OBS DISCH 30 MIN/LESS
[2024-03-27] MEDS: cefTRIAXone SODIUM 2,000 MG/50 ML BAG IV STA (16:43)
[2024-03-27] MEDS ORDERED: cefTRIAXone SODIUM 2,000 MG/50 ML BAG IV SCH (19:00)
--- NOTE | 2024-03-27 19:09 | Billing Data ---
Date of Service March 27, 2024 Coding Level of Care Code 01988 INT INP/OBS CARE
--- NOTE | 2024-03-29 14:27 | Electrocardiogram Report ---
Test Reason : Blood Pressure : */* mmHG Vent. Rate : 128 BPM Atrial Rate : 128 BPM P-R Int : 140 ms QRS Dur : 72 ms QT Int : 292 ms P-R-T Axes : 39 73 14 degrees QTcB Int : 426 ms Sinus tachycardia Possible Left atrial enlargement Cannot rule out Anterior infarct , age undetermined Abnormal ECG When compared with ECG of 14-Oct-2023 16:36, Vent. rate has increased by 46 bpm Confirmed by Michelet Mesa ([id number]) on 03/29/2024 2:26:54 PM Referred By: NO PCP Confirmed By: Michelet Mesa
== END 2024-03-27 18:30 | disposition home or self-care (01) ==
LOC: ED 16:44 → SUATTDRO 22:11 → 2S 22:11 → INTOOBSV 22:11 → 2S 23:39